=== PATIENT | female | born 1990 | race Caucasian/White ===

== ENCOUNTER 2024-04-22 09:03 | Outpatient (AMB) | payer OTHER, SELFPAY ==
--- NOTE | 2024-04-22 09:40 | A.SPINEOV_ITS ---
Intake Visit Reasons: compression of lumbar nerve root Intake Note: Ms. Marie is here today c/o low back pain. Colorist Photography Required: No Assessment & Plan Assessment & Plan (1) Lumbar disc herniation: Code(s): M51.26 - Other intervertebral disc displacement, lumbar region Category: Medical Plan Dear Dr Shay, Thank you for referring Patricia to our office today. She is a very nice 34-year-old female who reports that sometime around 3-4 weeks ago, she began experiencing some pain in her left buttock. Over the course of next few weeks it transitioned to a severe pain and cramping with spasms shooting down her leg into her foot. There has also been numbness as well as weakness of her left foot reported. She went to an urgent care as well as to your office. She was given a number of different medications to try to manage the pain including a trial of steroids, oxycodone, Tylenol, cyclobenzaprine, gabapentin. She takes meloxicam for a hip issue and that she is continued to take as well. If she is laying down on her right side, the pain is uncomfortable but she can tolerate it. But as soon as she stands up to walk it becomes almost unbearable. The pain may have gotten slightly better since she has been spending most of her days on her side but again any attempts at mobilizing gives her intense discomfort. She is here today with a recent MRI done at [facility] showing a large herniated disc on the left at L5-S1. To this point she has not done any physical therapy, but she tells me that there is no way she could participate because of the amount of pain. PMH: She has right hip dysplasia and is due for an upcoming hip replacement sometime in the fall. Other than that she is reasonably healthy. She has no history of heart attacks, strokes, bleeding disorders, liver disorder, kidneys disease, bleeding disorders, blood clots, cancer, pulmonary problems etc.. Social hx: She does not smoke, occasionally uses marijuana and alcohol Medications: Oxycodone, Colace, prednisone, meloxicam, lorazepam p.r.n., cyclobenzaprine, Tylenol Allergies: None Physical exam: She is in significant distress here in the office today just trying to do simple things like lying flat on the examining table. She has a positive straight leg raise at 20 degrees. She has a 3/5 weakness of her left tibialis. Rest of her motor exam is intact. Imaging review: Lumbar MRI done at [facility] just a week ago shows a herniated disc fragment on the left at L5-S1 which appears to be extraforaminal compressing the left L5 nerve root. The radiologist suggests that she has bilateral spondylolysis, but she has plain films done at [facility] and I do not see this on the x-ray. Impression: A 34-year-old female presents to the office today with an acute left L5 radiculopathy with foot weakness in the setting of a large herniated disc on the left at L5-S1. A typically this is a situation where we would attempt conservative treatment, but with the foot weakness I think there is a sense of urgency here. She has tried numerous pain medications without any significant relief in her pain levels are off the chart. I am going to speak with Dr. Webster and review her imaging with him, but typically this is a situation he would offer microdiskectomy. I have tentatively put her on for May 04 for a left far lateral microdiskectomy using the metrx tubes. I told her that if the pain happens to get better over the course of the time before the surgery that she could certainly call and cancel. We discussed the fact that the foot weakness and numbness maybe it a sign of nerve damage and there is no way to predict if it will get better after surgery. I quoted success rate for relief of the leg pain at 90%. Pt was given risk and benefits of surgery including but not limited to infection, hematoma , nerve injury,durotomy, weakness,bowel/bladder injury, persistent pain, recurrent herniated disc as well as the option to continue with conservative treatment and patient wishes to proceed with surgery. Pt is aware they should stop their meloxicam 7 days prior to surgery. All questions were answered to the best of our ability. If there is anything about this patients medical history that we have overlooked or concerns you have about us proceeding with surgery we would appreciate any input you can offer. Thank you for allowing us to care for your patient. The total time spent with this visit with this patient was 45 minutes reviewing history, physical exam, lumbar MRI imaging review, and implementation of treatment plan or further diagnostic testing George Webster MD,PhD [facility] Coding Level of Care Code New Pt Level 4 (89321) Diagnoses Lumbar disc herniation M51.26
== END 2024-04-22 10:55 | disposition home or self-care (01) ==
PROVIDERS: PCP Family Medicine; Referring Provider Family Medicine; Visit Provider Physician Assistant
DX: M51.26 Other intervertebral disc displacement, lumbar region (principal)
CPT/HCPCS: 99204

== ENCOUNTER → 2024-04-22 09:03 | Outpatient (BNVA) | payer OTHER, SELFPAY | PROVIDERS: PCP Family Medicine; Visit Provider Physician Assistant ==

== ENCOUNTER 2024-05-03 07:24 | Day surgery (SDC) | payer OTHER, SELFPAY ==
[2024-05-03] VITALS (9 sets, daily range): BP systolic 97–142; BP diastolic 67–115; PULSE 90–113; RESP 14–18; TEMP 36.5–37.1; O2SAT 93–100; BMI 36.3
--- NOTE | ~2024-05-03 | FL_ITS ---
EXAMINATION: XR FLUOROSCOPY WITH IMAGES CLINICAL INFORMATION: Far lateral microlumbar discectomy. COMPARISON: None available. TECHNIQUE: Fluoroscopy Supervised By: Dr. Wilman Webster. Fluoroscopy Time: 2.9 seconds. Cumulative Dose: 1.7638 mGy. DAP: 0.5598 Gy-cm2. Images: 2. FINDINGS: Intraoperative fluoroscopy and spot films were performed during a procedure in the OR. Probes and instruments are seen at the L5-S1 level on the left laterally. Please correlate with Dr. Wilman Webster' report for complete details. FL/FL guidance in OR IMPRESSION: Intraoperative fluoroscopy and spot films were obtained. Please see Dr. Wilman Webster' report for complete details.
[2024-05-03 07:43] LABS: UPreg QC Valid YES
[2024-05-03 07:44] LABS: Urine Pregnancy NEGATIVE (NEGATIVE)
--- NOTE | 2024-05-03 07:46 | MHC.SHP ---
Pre-Procedural Eval Section A - 24 Hr Update-Section A only Date of Service: 05/03/24 The patient is an INPATIENT: No Changes since office visit: No Cold of Flu in the past 2 weeks, No New Medical Problems, No Changes in Medication and No Patient answered all questions The patient has been examined within 24 hours of the surgical procedure. The History & Physical has been completed within 30 days and I have reviewed it.: Yes Section B - Complete if H&P > 30 days Chief Complaint: Other intervertebral disc displacement, lumbar reg Allergies: Allergies Allergy/AdvReac Type Severity Reaction Status Date / Time No Known Allergies Allergy Verified 04/25/24 16:04 Plan Diagnosis/Plan: Unchanged left L5-S1 far lateral microdiskectomy with Metrx tubes Time Spent With Patient Time: Total time managing care of this patient today _6___ minutes.
--- NOTE | 2024-05-03 07:49 | HO.ANESPROP2 ---
HPI - Anesthesia Eval Consult details Narrative: 34 yo F presenting fir L5-S1 microdiscectomy PMFSH Active Problems Active Problems: All Active Problems Lumbar disc herniation (Acute) Past Medical History Medical History (Updated 04/27/24 @ 10:36 by Tiara Zamora RN) Heartburn IUD (intrauterine device) in place Developmental dysplasia of hip Anxiety Family History Family history of problems with anesthesia: No Surgical History Surgical History (Updated 04/27/24 @ 10:05 by Tiara Zamora RN) Hx of reduction mammoplasty History of Problems with Anesthesia: No Social History Social History Are you a primary healthcare network consultant to a significant other at home: No Do you presently have visiting nurse or other home services: No Patient Tobacco Use Status: Never used Tobacco Substance Use Frequency: Occasionally Have you been hit, kicked, punched, or otherwise hurt by someone within the past year? If so, by whom?: No Are you DNR?: No Advance Directives: No (partner is primary contact) Advance Directives Information Provided: Yes Advance Directives on File: No Recently lost weight without trying: No Eating poorly because of decreased appetite: No Nutrition Risks: No Nutritional Risk Patient : No (has IUD) Poor oral hygiene: No Meds Allergies Allergy/AdvReac Type Severity Reaction Status Date / Time No Known Allergies Allergy Verified 04/25/24 16:04 Active Medications: Current Medications Cefazolin Sodium/Dextrose (Ancef) 2 gm in 50 mls @ 100 mls/hr IV PREOP ONE Stop: 05/03/24 07:57 Home Medications ?Medication ?Instructions ?Recorded ?Confirmed ?Last Taken ?Type acetaminophen 500 mg tablet 1,000 mg PO TID 04/27/24 04/27/24 05/03/24 History cyclobenzaprine 5 mg tablet 5 mg PO TID Muscle Spasm 04/27/24 04/27/24 05/03/24 History docusate sodium 100 mg capsule 100 mg PO DAILY 04/27/24 04/27/24 Unknown History (Colace) gabapentin 100 mg capsule 300 mg PO TID 04/27/24 04/27/24 05/03/24 History lorazepam 0.5 mg tablet 0.5 mg PO TID PRN Anxiety 04/27/24 04/27/24 05/03/24 History meloxicam 15 mg tablet 15 mg PO DAILY 04/27/24 04/27/24 Unknown History oxycodone 5 mg tablet 5 mg PO QID PRN Pain 04/27/24 04/27/24 05/03/24 History sennosides 8.6 mg tablet (senna) 8.6 mg PO BEDTIME 04/27/24 04/27/24 Unknown History Exam Exam Date and Time: May 03, 2024 0755 Height,Weight and Vital Signs: Height 5 ft 6 in Weight 102.058 kg Last Vital Signs Temp 98.8 F 05/03/24 07:38 Pulse 113 H 05/03/24 07:38 Resp 16 05/03/24 07:38 BP 142/115 H 05/03/24 07:38 Pulse Ox 100 05/03/24 07:38 O2 Del Method Room Air 05/03/24 07:38 Pertinent Lab Results Pertinent Lab Results: Laboratory Tests 05/03/24 07:31 Urine Test NEGATIVE Airway Mallampati Class: I TM Dist: >3cm Neck ROM: Full Loose/Missing/Broken Teeth: No (patient denies any loose or broken teeth) Heart: S1S2 Lungs: CTAB Assessment and Plan Assessment Anesthesia Assessment: Anesthesia Plan Discussed and Chart Reviewed Final Anesthetic Review Family History of Problems with Anesthesia: No History of Problems with Anesthesia: No NPO: Yes ASA Class: II Final Preanesthetic Review: No Changes in Pt Med Stat, Meds/Allgs Chart Reviewed, Consent Obtained/Reviewed and Anes Risks/Benef Reviewed Patient Risk: Low Procedure Risk: Intermediate Anesthetic Plan Anesthetic Plan: GA and Agree w/ Assess. and Plan Disposition: Standard PACU
[2024-05-03] MEDS: methocarbamoL 750 MG TABLET PO (07:50)
[2024-05-03] MEDS: Lactated Ringers 1,000 ML 50 ML IVCONT (08:03)
--- NOTE | 2024-05-03 09:00 | P.OP_ITS ---
Operative Note Operative Note Date of Service: 05/03/24 Narrative: Preop diagnosis: lumbar disc herniation L5-S1, extraforaminal ( far lateral) with lumbar radiculopathy Postop diagnosis: same Procedure: Left L5-S1 lumbar microdiskectomy, extraforaminal approach with microscope Description of procedure: This patient is suffering from a left L5 lumbar radiculopathy due to an L5-S1 extraforaminal lumbar disc herniation compressing the L5 nerve root. The patient was offered a lumbar microdiskectomy through an extraforaminal approach. The procedure and complications were explained. The patient was consented. The patient was brought to the operating room and endotracheally intubated. The patient was turned in the prone position on Steven frame. Prepping and draping was done followed by time-out. The lateral border of the L5-S1 facet joint was marked on the skin with x-ray. A left paramedian incision was made. The muscle fascia was opened. Sequential dilators were inserted followed by a 18 mm Metrx tube. the lateral border of the L5-S1 facet joint as well as the transverse process of L5 was exposed. The microscope was brought in. The lateral part of facet joint was resected with a high-speed drill. I went into the Kambin's triangle and immediately exposed a large disc fragment that was removed with a pituitary rongeur. Piece was approximately 2 cm x 1 cm. Accordingly, a nerve hook could be easily passed under the L5 nerve root as sign of adequate decompression. Physician assistant attorney general took over the procedure and performed hemostasis and closure of the incision in 2 layers. Steri-Strips were used to approximate the incision. An Oppsite with tegaderm was used to cover the incision. All sponge and needle counts were correct. The patient was extubated and transported in stable condition to recovery room. Surgeon: Wilman Webster MD Assist: sandy Nix Anesthesia: general Estimated blood loss: minimal Surgical time: 30 minutes Specimen: none Deposition: Discharge home
--- NOTE | 2024-05-03 09:05 | P.DS_ITS ---
DS: Providers Provider Date of Service: 05/03/24 Date of discharge: 05/03/24 Primary care physician: Ankita Benítez NP Admitting clinician: Wilman Webster DS: Diagnosis Discharge Diagnosis (1) Lumbar disc herniation: Status: Acute DS: Summary Time Attestation Discharge Coordination Time (in mins): 5 Quality: Safe Use of Opioids Does Pt have an Active Cancer Diagnosis on the Problem List?: No Quality: Stroke Does the patient have a stroke diagnosis?: No Physical Exam Vital Signs: Vital Signs: Last Vital Signs Temp 98.8 F 05/03/24 07:38 Pulse 113 H 05/03/24 07:38 Resp 16 05/03/24 07:38 BP 142/115 H 05/03/24 07:38 Pulse Ox 100 05/03/24 07:38 O2 Del Method Room Air 05/03/24 07:38 BMI result Body Mass Index 36.3 DS: Data Data Completed and Pending Labs on day of discharge: Laboratory Results - last 24 hr 05/03/24 07:31 Urine Test NEGATIVE Discharge Plan Discharge Patient Disposition: Home, Self-Care Referrals: Ankita Benítez NP [Primary Care Provider] - 1 Week Discharge Medications: Continued meloxicam 15 mg Tablet 15 mg PO DAILY lorazepam 0.5 mg Tablet 0.5 mg PO TID PRN (Reason: Anxiety) gabapentin 100 mg Capsule 300 mg PO TID Rx Instructions: took 600mg oxycodone 5 mg Tablet 5 mg PO QID PRN (Reason: Pain) Rx Instructions: took 10mg this am cyclobenzaprine 5 mg Tablet 5 mg PO TID sennosides [senna] 8.6 mg Tablet 8.6 mg PO BEDTIME acetaminophen 500 mg Tablet 1,000 mg PO TID docusate sodium [Colace] 100 mg Capsule 100 mg PO DAILY Discharge Orders: Discharge Order (Routine); Ordered 05/03/24 Ordered By: George Parkinson Diet: Advance to usual diet Activity on Discharge: As tolerated Activity Restrictions/Additional Instructions: After your spinal surgery we ask you to observe the following restrict ions/guidelines: Activity: It is normal to feel some discomfort as you increase your activity, but that will improve with time. We ask you avoid heavy lifting or acitivities that cause pain. As a general rule, 8lbs is a safe limit for lifting right after surgery. Walk as much as you feel comfortable but not to exhaustion. You will feel extra tired the first few days after surgery. Stay well hydrated. It is OK to walk up and down stairs You may return to driving when you are off narcotics (such as vicodin, oxycodone, dilaudid, etc), and you are back to normal functional capacity. If you have any concerns please check with office before driving. Return to work is specific to each patient and each surgery, so please speak with your doctor/PA at first follow up. Please bring paperwork such as FMLA at that time if you need it filled out. Medications: For optimum pain control, it is best to start with a combination of 500 mg of Tylenol every 4 hours with 600 mg of Motrin every 8 hours, and use narcotics as needed in between for breakthrough pain. We will give you a short supply of narcotics after surgery (usually one weeks worth). If you need more please call the office but do not use more than prescribed. You will need to give our office 48 hours notice if you need narcotics refilled and we do not fill narcotics on weekends or evenings. If you are on a narcotic, it is a good idea to take a stool softener such as colace or senna to avoid constipation If you take blood thinner such as aspirin, Plavix, Coumadin, Effient, Eliquis etc for conditions such as Afib, DVT, Pulmonary embolus, coronary disease, stents etc please speak with your surgeon about specific details as to when you can resume these medications. You can resume NSAIDs on post op day 1 (eg: Motrin, Naproxen, etc). Follow up: Please call the office, , after surgery to arrange a 3 week follow up for wound check. Wound Care: You may remove your dressing on the first day after surgery. ?You may ?leave open to air. Please do not remove the steri strips underneath. they will fall off on their own in one week. IT IS NORMAL FOR THE WOUND TO OOZE OR BE BLOODY FOR A FEW DAYS AFTER SURGERY. ?IF THIS HAPPENS JUST PLACE NEW DRESSING OVER IT TO AVOID STAINING CLOTHES. You may shower on post op day # 1 We ask that you do not let the water soak the wound. If it does get wet, just towel dry lightly. Please do not scrub your incision or place any type of chemical/ointment on the wound. No tub baths, pools or jacuzzis for one month. If you have any leaking or redness from your wound, or fevers, please call office Print Language: Setswana
== END 2024-05-03 11:42 | disposition home or self-care (01) ==
PROVIDERS: Anesthesiology; PCP Nurse Practitioner Gerontology; Visit Provider Neurological Surgery
PROC: (CPT 63056; principal; 2024-05-03 10:00)
DX: M51.26 Other intervertebral disc displacement, lumbar region (principal); F41.9 Anxiety disorder, unspecified; Q65.89 Other specified congenital deformities of hip; Z79.899 Other long term (current) drug therapy; Z79.52 Long term (current) use of systemic steroids; Z98.890 Other specified postprocedural states
CPT/HCPCS: 63056; 81025; J0131; J0690; J1100; J1170; J1885; J2250; J2405; J2704; J3010

== ENCOUNTER → 2024-05-03 07:24 | Outpatient (BNV) | payer OTHER, SELFPAY | PROVIDERS: PCP Nurse Practitioner Gerontology; Visit Provider Neurological Surgery | DX: M51.26 Other intervertebral disc displacement, lumbar region (principal) | CPT/HCPCS: 63056; 99499 ==

== ENCOUNTER 2024-05-27 11:05 | Outpatient (AMB) | payer OTHER, SELFPAY ==
--- NOTE | 2024-05-27 11:17 | HO.SPINEOV ---
Intake Visit Reasons: 1st post op Intake Note: Ms. Marie is here today for ther 1st post-op visit. Content Creation Manager Required: No Allergies No Known Allergies Allergy (Verified 04/25/24 16:04) Assessment & Plan Assessment & Plan (1) Lumbar disc herniation: Code(s): M51.26 - Other intervertebral disc displacement, lumbar region Category: Medical Plan Dear colleague, On 05/27/2024 saw for 1st postoperative visit Nikki Marie. The patient underwent a left extraforaminal L5-S1 diskectomy to decompress the left L5 nerve root. The patient reports a reduction in pain body still noticing swelling of the left foot and pain in the distal part of the leg.. Narcotics are no longer used. I explained that the location of the herniated disc produces direct compression of the ganglion, which is the area where pain is generated. It is well-known that subsidence of pain may take much longer than with a herniated disc in the classic medial position. A 2nd postoperative visit is scheduled for 6 weeks. The patient will call for return to work note at the appropriate time. Wilman Webster MD, PhD Spine Fellowship Trained Neurosurgeon Director, [facility] [facility] Coding Level of Care Code Global (71927) Diagnoses Lumbar disc herniation M51.26
== END 2024-05-27 11:31 | disposition home or self-care (01) ==
PROVIDERS: PCP Nurse Practitioner Gerontology; Visit Provider Neurological Surgery
DX: M51.26 Other intervertebral disc displacement, lumbar region (principal)
CPT/HCPCS: 99024

== ENCOUNTER → 2024-05-27 11:05 | Outpatient (BNVA) | payer OTHER, SELFPAY | PROVIDERS: PCP Nurse Practitioner Gerontology; Visit Provider Neurological Surgery ==

== ENCOUNTER 2024-07-14 10:55 | Outpatient (AMB) | payer OTHER, SELFPAY ==
--- NOTE | 2024-07-14 11:02 | A.SPINEOV_ITS ---
Intake Visit Reasons: 2nd post op Intake Note: Ms. Marie is here today for her 2nd post-op. Data Security Coordinator Required: No Allergies No Known Allergies Allergy (Verified 04/25/24 16:04) Assessment & Plan Assessment & Plan (1) Lumbar disc herniation: Code(s): M51.26 - Other intervertebral disc displacement, lumbar region Category: Medical Plan: Procedure: Left L5-S1 microdisckectomy Patricia comes in today for her 2nd postoperative visit. She reports she is overall satisfied with the surgery and does feel better than she did preoperatively. Unfortunately she continues to report of some left-sided lumbar radiculopathy. She states she still gets shooting pains into her left leg occasionally, and finds it difficult to ambulate. 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 She asked many questions regarding the postoperative healing course, and we discussed how her upcoming hip surgery may impact her continued healing progress in regards to her ambulation. In addition to this, we discussed the risks/benefits associated with the attending physical therapy at this point in the healing process. No new neurological deficits. Patient is able to ambulate well, rises from a seated position without difficulty. I will be sending Julissa a course of physical therapy before she follows up with her orthopedic provider to have her total hip done. She was informed she does not need to routinely follow up with us any longer and should continue to heal as time progresses. If she does have persistent left-sided radicular pain that does not subside, I encouraged her to make a follow-up appointment with us at which time we may order a repeat lumbar MRI depending on the severity of her symptoms. Hernesto Webster MD,PhD [facility] Orders: Orders PT Evaluation and Treatment Today M51.26 - Other intervertebral disc displacement, lumbar region Coding Level of Care Code Global (46684) Diagnoses Lumbar disc herniation M51.26
== END 2024-07-14 11:18 | disposition home or self-care (01) ==
PROVIDERS: PCP Nurse Practitioner Gerontology; Visit Provider Physician Assistant
DX: M51.26 Other intervertebral disc displacement, lumbar region (principal)
CPT/HCPCS: 99024

== ENCOUNTER → 2024-07-14 10:55 | Outpatient (BNVA) | payer OTHER, SELFPAY | PROVIDERS: PCP Nurse Practitioner Gerontology; Visit Provider Physician Assistant ==

== ENCOUNTER 2024-10-11 15:02 | Outpatient (AMB) | payer MEDICAID, SELFPAY ==
--- NOTE | 2024-10-11 15:03 | A.SPINEOV_ITS ---
Vital Signs 10/11/24 15:06 Height 5 ft 6 in Weight 226 lb BMI 36.5 Intake Visit Reasons: persistent left-sided radicular pain Intake Note: Ms. Marie is here today c/o Left sided buttock pain that radiates down the lower leg and foot. 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 She has also had a left total hip completed roughly 6 weeks ago. She is concerned that she continues to experience his sensation of numbness and weakness in her left lower extremity. She states that she can feel numbness over her left anterior tibialis in the top/medial aspect of her left foot. She is concerned as she also continues to have some pain associated in these areas, although she does not describe it as a shooting pain, more of a dull constant aching pain. She does feel that her ambulation has improved quite a bit since her hip surgery. On examination she has about 4/5 strength with left-sided dorsiflexion, plantar flexion, knee extension. The rest of her bilateral lower extremity strength is 5/5. Negative bilateral straight leg raise. Due to her reports of consistent pain and numbness/tingling in her left lower extremity, I would like to obtain a repeat lumbar MRI to ensure that she does not have any recurrence of herniation. I will see her again in clinic after her MRI is complete. Hernesto Webster MD,PhD [facility] Orders: Orders MR lumbar spine wo con Today M51.26 - Other intervertebral disc displacement, lumbar region Coding Level of Care Code Tele New Pt Level 3 (53322) Diagnoses Lumbar disc herniation M51.26
[2024-10-11 15:06] VITALS: BMI 36.5
--- OUTSIDE RECORDS SUMMARY | 2024-10-12 22:19 | XMS_ITS | Data Portability ---
Author Organization [facility], [employer] Address [address] [place] [address] [place] [id number] Assessment Encounter Date Assessment Date Assessment LastModified by Organization Details LastModified Time 03/04/2024 03/04/2024 Total Call Length: 13 minutes Chart Review and Documentation: 20 minutes Total: 33 minutes [email or web address] Not available 03/04/2024 11:24:12 04/07/2024 04/07/2024 During this encounter, 2 of the 3 elements of MDM addressed: (1)Number and Complexity of problems: 1 acute illness with systemic symptoms (2)Amount/Compl exity of data (need 1 out of 3 categories): (3)Moderate Risk of morbidity from additional diagnostic testing or treatment (one needed): Prescription Drug management. [email or web address] Not available 04/07/2024 13:08:19 04/12/2024 04/12/2024 Patient presents to the office with lower back pain, radiating down the left gluteus and the posterior left leg into the foot. Patient reports some numbness and tingling in the left lower extremity, denies bowel/bladder incontinence. They were seen in the office 04/07 and also seen in the emergency room later that day due to not being able to get comfortable. They report that the ED physician prescribed them prednisone which they do feel has had minimal good effects. They also report that the oxycodone has been more effective the last 48 hours in controlling pain, which they attribute to the steroids. They have been mainly laying in bed on their right side and have been unable to participate in usual daily activities. Physical exam confirms lower back pain with radiculopathy/s ciatica. DTRs 2+, patient able to perform active ROM limited by pain. We discussed continuing with prednisone and other medications, light movement, gentle massage, and heat therapies. They will also follow up for MRI imaging. Plan is for patient to follow-up in the office following MRI. Reviewed xrays during todays visit. No obvious xray abnormalities, but exam consistent with spinal nerve compression. Pt not capable of more supportive care at this time. Focal sensory and neurological deficits present on exam. [email or web address] Not available 04/13/2024 08:23:04 04/26/2024 04/26/2024 During this encounter, 2 of the 3 elements of MDM addressed: (1)Number and Complexity of problems: 1 or more chronic illness with exacerbation, progression, or side effects of treatment (2)Amount/Compl exity of data (need 1 out of 3 categories): (3)Moderate Risk of morbidity from additional diagnostic testing or treatment (one needed): Prescription Drug management. [email or web address] Not available 04/26/2024 15:11:43 08/25/2024 08/25/2024 During this encounter, 2 of the 3 elements of MDM addressed: (1)Number and Complexity of problems: 1 or more chronic illness with exacerbation, progression, or side effects of treatment (2)Amount/Compl exity of data (need 1 out of 3 categories): (3)Moderate Risk of morbidity from additional diagnostic testing or treatment (one needed): decision about minor or major surgery. Not available 08/25/2024 10:14:28 Plan of Treatment Reminders Order Date Submit Date Provider Last Modified By Organization Details Last Modified Time Details Appointments None recorded . Lab None recorded . Referral None recorded . Procedures None recorded . Surgeries None recorded . Imaging MRI, lumbar spine, w/o contrast 2023 024 [email or web address] [facility] ([facility]), [address] , [place], [address], 4 15:38:01 electroc ardiogra m 2023 024 [facility], [address], [address], 4 15:24:12 electroc ardiogra m 2023 024 [facility], [address], [address], 10:15:50 Medication Orders oxycodon e 5 mg tablet 2023 024 [facility], [address] [place] [address], [address], 09:29:19 gabapent in 100 mg capsule 2023 024 [facility], [address] [place] [address], [address], 09:29:01 cycloben zaprine 5 mg tablet 2023 [facility], [address] [place] [address], [address], 14:32:45 predniso ne 20 mg tablet 2023 [facility], [address] [place] [address], [address], 09:42:32 senna 8.6 mg tablet 2023 024 [facility], [address] [place] [address], [address], 09:30:16 gabapent in 300 mg capsule 2023 024 [facility], [address] [place] [address], [address], 09:29:03 cycloben zaprine 10 mg tablet 2023 024 [facility], [address] [place] [address], [address], 09:28:27 lorazepa m 0.5 mg tablet 2023 024 [facility], [address] [place] [address], [address], 11:18:55 lorazepa m 0.5 mg tablet 2023 [facility], [address] [place] [address], [address], 12:56:06 oxycodon e 5 mg tablet 2023 [facility], [address] [place] [address], [address], 4 09:29:55 gabapent in 300 mg capsule 2023 [facility], [address] [place] [address], [address], 09:30:57 oxycodon e 10 mg tablet 2023 [facility], [address] [place] [address], [address], 4 09:42:24 bisacody l 10 mg rectal supposit ory 2023 [facility], [address] [place] [address], [address], 09:27:20 lactulos e 10 gram/15 mL oral solution 2023 [facility], [address] [place] [address], [address], 14:08:11 senna 8.6 mg tablet 2023 [facility], [address] [place] [address], [address], 09:42:33 lorazepa m 0.5 mg tablet 2023 [facility], [address] [place] [address], [address], 15:41:45 Patient TargetsNo targets recorded. Patient Instructions Encounter Date Encounter Id Patient Instructions Last Modified By Organization Details Last Modified Time 04/12/2024 [id number] back pain: care instructions [email or web address] Not available 04/13/2024 08:23:25 Reason for Referral None Reported. Results Created Date Observation Date Name Description Value Unit Range Abnormal Flag Note LastModifiedBy Organization Detail LastModifiedTime 04/18/20 24 04/17/2024 MRI, lumba r spine , w/o contr ast No observ ation record ed. [facility] ([facility]) [address], [place], [id number], 04/18/2024 15:08:55 04/26/20 24 04/26/2024 elect rocar diogr am No observ ation record ed. [address] [place], [id number], 04/26/2024 15:24:12 04/26/20 24 04/26/2024 elect rocar diogr am No observ ation record ed. [address], [id number], 04/26/2024 15:48:55 08/25/20 24 08/25/2024 elect rocar diogr am No observ ation record ed. [address], [address], 08/25/2024 10:15:50 08/25/20 elect rocar diogr am No observ ation record ed. [address], [address], 08/25/2024 09:58:36 Result Notes None recorded. Problems Name Problem SNOMED Code Status Onset Date Resolution Date Notes Provider Name and Address Organization Details Recorded Time Development al dysplasia of right hip 8525187440 Active 2023 Ankita Benítez NP 1 [facility], [place], [address], [facility] - [facility] 10:22:37 Generalized anxiety disorder 68575869 Active 2023 Ankita Benítez NP 1 [facility], [place], [address], [facility] 4 10:22:57 Plantar fasciitis of left foot 5902867584003 9101 Active 2023 Ankita Benítez NP 1 [facility],[address], [place], [address], [facility] - [facility] 4 10:36:08 Problem Notes None recorded. Procedures Surgical History Date Name Laterality Status Provider Name and Address Organization Details Recorded Time 2 Breast reduction completed Ankita Benítez NP 1 [facility],[address], [place], [id number], [facility] 12/25/2023 10:23:39 Imaging Results Imaging Date Name Status LastModified by Organization Details LastModified Time 04/17/2024 MRI, lumbar spine, w/o contrast completed [facility] ([facility]) [address] , [place], [address], 04/18/2024 15:08:55 04/26/2024 electrocardiogram completed [address], [address], 04/26/2024 15:24:12 04/26/2024 electrocardiogram completed [address], [address], 04/26/2024 15:48:55 08/25/2024 electrocardiogram completed [address], [address], 08/25/2024 10:15:50 08/25/2024 electrocardiogram completed [address], [address], 08/25/2024 09:58:36 Procedure Notes None recorded. Medical Equipment None Reported. Allergies No known drug allergies Medications Name Sig Start Date Stop Date Status Note LastModified by Organization Details LastModified Time celecoxib 200 mg capsule 1 capsule by mouth after hip replaceme nt active Not Available Not Available No t Available cyclobenzap rine 10 mg tablet Take 1 tablet 3 times a day by oral route as needed for 7 days. 08/25 completed Not Available Not Available Not Available Mirena 21 mcg/24 hr (up to 8 years) 52 mg intrauterin e device Take by intrauter ine route. active Not Available Not Available No t Available senna 8.6 mg tablet Take 2 tablets every day by oral route for 14 days. 08/25 completed Not Available Not Available Not Available meloxicam 15 mg tablet TAKE 1 TABLET BY MOUTH ONCE DAILY active Not Available Not Available No t Available ondansetron HCl 4 mg tablet 1 tablet by mouth daily prn active Not Available Not Available No t Available prednisone 20 mg tablet Take 2 tablets daily for 7 days followed by 1 tablet daily for 7 days 08/25 completed Not Available Not Available Not Available oxycodone 15 mg tablet Take 1 tablet 3 times a day by oral route for 7 days. 04/26 completed Not Available Not Available Not Available meloxicam 7.5 mg tablet 12/25 completed Not Available Not Available Not Available lorazepam 0.5 mg tablet 2 tablets per day as needed 2023 active Not Available Not Available Not Avai lable bisacodyl 10 mg rectal suppository Insert 1 supposito ry every day by rectal route for 7 days. 08/25 completed Not Available Not Available Not Available gabapentin 300 mg capsule Take 1 capsule 3 times a day by oral route for 14 days. 08/25 completed Not Available Not Available Not Available Tylenol 325 mg tablet Take 2 tablets every 6 hours by oral route. active Not Available Not Available No t Available gabapentin 100 mg capsule 300mg TIDx1 week then 200mg TIDx1 week and 100mg TIDx1 week 08/25 completed Not Available Not Available Not Available methylpredn isolone 4 mg tablets in a dose pack TAKE 6 TABLETS ON DAY 1 DIRECTED ON PACKAGE AND DECREASE BY 1 TAB EACH DAY FOR A TOTAL OF 6 DAYS 04/26 completed Not Available Not Available Not Available oxycodone 5 mg tablet 1-2 tablet q4-6 hours after hip replaceme nt 2023 active Not Available Not Available Not Avai lable cyclobenzap rine 5 mg tablet TAKE 1 TABLET BY MOUTH THREE TIMES DAILY NEEDED active Not Available Not Available No t Available Constulose 10 gram/15 mL oral solution Take 15 mL twice a day by oral route as needed. active Not Available Not Available No t Available Colace active Not Available Not Availa ble Not Available Miralax active Not Available Not Avail able Not Available oxycodone 10 mg tablet Take 1 tablet every 4 hours by oral route as needed for 7 days. 08/25 completed Not Available Not Available Not Available Eliquis 2.5 mg tablet 1 tablet by mouth twice daily after hip replaceme nt active Not Available Not Available No t Available Vitals Date Recorded Body height Oxygen saturation Oxygen saturation in Arterial blood by Pulse oximetry Heart rate Systolic blood pressure Diastolic blood pressure Provider Name and Address Organization Details Last Updated DateTime 4 167.64 cm 99 % 99 % 97 /min 124 mm[Hg] 80 mm[Hg] Mary Ann james [facility] 4 12:43:57 Date Recorded Body height Oxygen saturation Oxygen saturation in Arterial blood by Pulse oximetry Heart rate Provider Name and Address Organization Details Last Updated DateTime 04/12/2024 167.64 cm 99 % 99 % 72 /min Radha Muniz [facility] 04/12/2024 10:37:20 Date Recorded Systolic blood pressure Diastolic blood pressure Provider Name and Address Organization Details Last Updated DateTime 04/12/2024 120 mm[Hg] 74 mm[Hg] Adriane Travis RN 1 [facility] [address], [address], [facility] 04/12/2024 10:49:10 Date Recorded Body height Oxygen saturation Oxygen saturation in Arterial blood by Pulse oximetry Heart rate Systolic blood pressure Diastolic blood pressure Provider Name and Address Organization Details Last Updated DateTime 4 167.64 cm 99 % 99 % 114 /min 124 mm[Hg] 86 mm[Hg] Mary Ann james [facility] 4 13:42:00 Date Recorded Body height Body mass index (BMI) Body weight Oxygen saturation Oxygen saturation in Arterial blood by Pulse oximetry Heart rate Systolic blood pressure Diastolic blood pressure Provider Name and Address Organization Details Last Updated DateTime 4 167.64 cm 36.2 kg/m2 050505. 69 g 99 % 99 % 84 /min 122 mm[Hg] 84 mm[Hg] Mary Ann james [facility] 09:31:35 Social History Question Answer Notes LastModified by Organizat ion Details LastModified Time Tobacco Smoking Status Former Smoker Ankita Benítez NP [address], [place], [address], [facility] 12/25/2023 10:25:26 What Is Your Level Of Alcohol Consumption? Occasional [email or web address] Information not available 12/25/2023 Are You Currently Employed? Yes [email or web address] Information not available 12/25/2023 Which Illicit Or Recreational Drugs Have You Used? 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 6-10yearssince lastcigarette Information not available 12/25/2023 How Many Children Do You Have? 0 [email or web address] Information not available 12/25/2023 What Is Your Relationship Status? Domestic Partner [email or web address] Information not available 12/25/2023 Do You Use Any Illicit Or Recreational Drugs? Yes [email or web address] Information not available 12/25/2023 Sex: Female Functional Status None recorded. Mental Status None recorded. Family History Relationship Description Onset Age of this Age Resolved Age Notes LastModified by Organization Details LastModified Time Mother History of total hip arthroplasty [email or web address] Not available 10:24:10 Mother History of total knee arthroplasty Not available 10:24:19 Mother Hypothyroidi sm Not available 2023 10:24:25 Father Heart valve replacement [email or web address] Not available 12/04 10:24:34 Medical History No medical history recorded. Gynecological HistoryNo gynecological history recorded. Obstetrics History GPAL:G 0 P 0 0 0 0 Past Encounters Encounter ID Performer Location Encounter Start Date Encounter Closed Date Diagnosis/Indication Diagnosis SNOMED-CT Code Diagnosis ICD10 Code [id number] Ankita Benítez NP Main Office [address] [place] [address] 12/25/2023 10:18:20 12/25/2023 10:45:40 Developmental dysplasia of right hip 4806775311 Q65.89 Generalize d anxiety disorder 40118944 F41.1 [id number] Ankita Benítez NP [address] [place] [address] 12/29/2023 09:43:58 12/29/2023 10:51:01 Developmental dysplasia of right hip 3167603538 Q65.89 [id number] Ankita Benítez NP [address] [place] [address] 03/04/2024 11:07:33 03/04/2024 11:27:57 Developmental dysplasia of right hip 2268609713 Q65.89 [id number] Ankita Benítez NP [address] [place] [address] 04/07/2024 12:32:10 04/07/2024 13:54:08 Low back pain 741427386 M54.50 [id number] [address] Office [address] [place] [address] 04/12/2024 10:28:29 04/12/2024 11:21:48 Low back pain 921351832 M54.50 Lumbago with sciatica 20 0542983 M54.42 [id number] Ankita Benítez NP [address] [place] [address] 04/26/2024 13:35:09 04/26/2024 14:39:02 Therapeutic opioid induced constipation 3444199291 63189 K59.00 Lumbago with sciatica 20 5931010 M54.40 [id number] Ankita Benítez NP [address] [place] [address] 08/25/2024 09:21:49 08/25/2024 10:13:33 Developmental dysplasia of right hip 8363557596 Q65.89 Pre-surger y evaluation 414933258 Z01.818 Health Concerns Section Related Observation LastModified by Organization Detai ls LastModified Time None Recorded Concern Status LastModified by Organization Details LastModified Time None Recorded Advance Directives Directive None Recorded Payers Encounter Date Sequence Insurance Name Policy Number Policy Parish Covered Member ID Parish Member ID Guarantor Name 03/04/2024 1 [facility] [id number] Patricia Marie [id number] Patricia Marie 04/07/2024 1 [facility] [id number] Patricia Marie [id number] Patricia Marie 04/12/2024 1 [facility] [id number] Patricia Marie [id number] Patricia Marie 04/26/2024 1 [facility] [id number] Patricia Marie [id number] Patricia Marie 08/25/2024 1 [facility] [id number] Patricia Marie [id number] Patricia Marie Notes Date Note Type Note Provider Name and Address Organization Details Recorded Time 03/04/2024 text/html Video visit to discuss their hip surgery. They are scheduled for a hip replacement in July with Dr. Kali Washington at [facility] in [place], [place]. The provider number which is: [id number] (facility NPI number). Surgery is 07/14/24.This surgery is ideally performed by Dr. Washington because of his experience with hip dysplasia and the findings on the MRI. Patricia saw Dr. Washington this morning and I will be getting a copy of his note when signed.May need PFA for intermittent leave leading up to surgery and if so Patricia will message me with details and paperwork. Ankita Benítez NP 1 [facility], [place], [address], [facility] 03/04/2024 11:27:22 04/07/2024 text/html Has been having back pain for the last week, making it difficult to sleep. Seen at urgent care this morning but they were unable to provide any pain relief meds. They have been using flexeril, tylenol, ice and heat. Having pain into the left buttocks and tingling and numbness down the left leg. No incontinence or weakness. Ankita Benítez NP 1 [facility], [place], [address], [place] [facility] 04/07/2024 13:08:29 04/12/2024 text/html Patient presents today for continuing issues with lower back pain. They were seen in the office 04/07 and in the emergency room later that day. Michel Shay, DO 1 [facility],[address], [place], [address], [place] [facility] 04/13/2024 08:23:27 04/26/2024 text/html Here to discuss constipation and pain management before her back surgery next week. Her oxycodone is not holding her for the 6 hours.Despite numerous bowel meds she is still constipation. Ankita Benítez NP 1 [facility],[address], [place], [address], [place] [facility] 04/26/2024 15:14:02 08/25/2024 text/html Here for a pre-o p exam for her right hip replacement on 09/01/24. She has been in her usual state of health recently. No chest pains, shortness of breath or recent illnesses. She had a surgery earlier this year and struggled in the post-op period with pain and then tapering off pain medications but had no complications with anesthesia. She is not on any medications that need to be held prior to surgery. Ankita Benítez NP 1 [facility],[address], [place], [address], [place] [facility] 08/25/2024 10:15:18 OBGyn Episode No OBEpisode recorded.
--- OUTSIDE RECORDS SUMMARY | 2024-10-12 22:19 | XMS_ITS | Continuity of Care Document ---
Author Organization [facility], Main Office Address [address] [facility] [address] [place] [address] Assessment Encounter Date Assessment Date Assessment LastModified by Organization Details LastModified Time 08/25/2024 08/25/2024 During this encounter, 2 of the 3 elements of MDM addressed: (1)Number and Complexity of problems: 1 or more chronic illness with exacerbation, progression, or side effects of treatment (2)Amount/Com plexity of data (need 1 out of 3 categories): (3)Moderate Risk of morbidity from additional diagnostic testing or treatment (one needed): decision about minor or major surgery. Not available 08/25/2024 10:14:28 Plan of Treatment Reminders Order Date Submit Date Provider Last Modified By Organization Details Last Modified Time Details Appointments None recorded. Lab None recorded. Referral None recorded. Procedures None recorded. Surgeries None recorded. Imaging electrocard iogram 2023 [facility], [facility], [address] [place] [address], [address], 10:15:50 Medication Orders lorazepam 0.5 mg tablet 2023 [facility], [address] [place] [address], [address], 15:41:45 Patient TargetsNo targets recorded. Patient InstructionsNo instructions recorded. Reason for Referral None Reported. Results Created Date Observation Date Name Description Value Unit Range Abnormal Flag Note LastModifiedBy Organization Detail LastModifiedTime 08/25/2008/25/2024 elect jhony hamm am No observ ation record ed. [address], [address], 08/25/2024 10:15:50 08/25/20 24 elect jhony hamm am No observ ation record ed. [facility] [address] [facility] [address], [place], [address], 08/25/2024 09:58:36 Result Notes None recorded. Problems Name Problem SNOMED Code Status Onset Date Resolution Date Notes Provider Name and Address Organization Details Recorded Time Development al dysplasia of right hip 4258315452 Active 2023 Ankita Benítez NP [address], [place], [address], [place] [facility] 4 10:22:37 Generalized anxiety disorder 56478072 Active 2023 Ankita Benítez NP [address], [place], [address], [place] [facility] 4 10:22:57 Plantar fasciitis of left foot 4782747227993 9101 Active 2023 Ankita Benítez NP [address], [place], [address], [place] [facility] 4 10:36:08 Problem Notes None recorded. Procedures Surgical History Date Name Laterality Status Provider Name and Address Organization Details Recorded Time 2 Breast reduction completed Ankita Benítez NP [address] [facility],[address], [place], [address], [place] [facility] 12/25/2023 10:23:39 Imaging Results Imaging Date Name Status LastModified by Organization Details LastModified Time 08/25/2024 electrocardiogram completed [facility] [address] [facility] [address], [place], [address], 08/25/2024 10:15:50 Procedure Notes None recorded. Medical Equipment None [...] t Available Vitals Date Recorded Body height Body mass index (BMI) Body weight Oxygen saturation Oxygen saturation in Arterial blood by Pulse oximetry Heart rate Systolic blood pressure Diastolic blood pressure Provider Name and Address Organization Details Last Updated DateTime 4 167.64 cm 36.2 kg/m2 332374. 69 g 99 % 99 % 84 /min 122 mm[Hg] 84 mm[Hg] Mary Ann Randolph jacob [place] [facility] 4 09:31:35 Social History Question Answer Notes LastModified by Organizat ion Details LastModified Time Tobacco Smoking Status Former Smoker Ankita Benítez NP [address] [facility], [place], [address], [place] [facility] 12/25/2023 10:25:26 What Is Your Level Of Alcohol Consumption? Occasional [email or web address] Information not available 12/25/2023 Are You Currently Employed? Yes [email or web address] Information not available 12/25/2023 Which Illicit Or Recreational Drugs Have You Used? 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 6-10yearssince lastcigarette [email or web address] Information not available 12/25/2023 How Many Children Do You Have? 0 [email or web address] Information not available 12/25/2023 What Is Your Relationship Status? Domestic Partner Information not available 12/25/2023 Do You Use Any Illicit Or Recreational Drugs? Yes [email or web address] Information not available 12/25/2023 Sex: Female Functional Status None recorded. Mental Status None recorded. Family History Relationship Description Onset Age of this Age Resolved Age Notes LastModified by Organization Details LastModified Time Mother History of total hip arthroplasty Not available 10:24:10 Mother History of total knee arthroplasty [email or web address] Not available 10:24:19 Mother Hypothyroidi sm [email or web address] Not available 2023 10:24:25 Father Heart valve replacement [email or web address] Not available 12/04 10:24:34 Medical History No medical history recorded. Gynecological HistoryNo gynecological history recorded. Obstetrics History GPAL:G 0 P 0 0 0 0 Past Encounters Encounter ID Performer Location Encounter Start Date Encounter Closed Date Diagnosis/Indication Diagnosis SNOMED-CT Code Diagnosis ICD10 Code [id number] Ankita Benítez NP Main Office [address] [place] [address] 08/25/2024 09:21:49 08/25/2024 10:13:33 Developmental dysplasia of right hip 4067401922 Q65.89 Pre-surger y evaluation 937357179 Z01.818 Health Concerns Section Related Observation LastModified by Organization Detai ls LastModified Time None Recorded Concern Status LastModified by Organization Details LastModified Time None Recorded Payers Encounter Date Sequence Insurance Name Policy Number Policy Parish Covered Member ID Parish Member ID Guarantor Name 08/25/2024 1 [facility] [place] [id number] Patricia Marie [id number] Patricia Marie Notes Date Note Type Note Provider Name and Address Organization Details Recorded Time 08/25/2024 text/html Here for a pre-o p [...] prior to surgery. Ankita Benítez NP [address] [facility],[address], [place], [address], [facility] Primary 08/25/2024 10:15:18 OBGyn Episode No OBEpisode recorded.
== END 2024-10-11 15:18 | disposition home or self-care (01) ==
PROVIDERS: PCP Nurse Practitioner Gerontology; Visit Provider Physician Assistant
DX: M51.26 Other intervertebral disc displacement, lumbar region (principal)
CPT/HCPCS: 99213

== ENCOUNTER → 2024-10-11 15:02 | Outpatient (BNVA) | payer MEDICAID, SELFPAY | PROVIDERS: PCP Nurse Practitioner Gerontology; Visit Provider Physician Assistant | DX: M51.26 Other intervertebral disc displacement, lumbar region (principal) | CPT/HCPCS: 99212 ==

== ENCOUNTER 2024-11-07 13:08 | Outpatient (AMB) | payer MEDICAID, SELFPAY ==
--- NOTE | 2024-11-07 13:13 | A.SPINEOV_ITS ---
Intake Visit Reasons: MRI f/up Intake Note: Ms. Marie is here today to F/u on the results to her MRI. Advertising Account Representative Required: No Allergies No Known Allergies Allergy (Verified 11/07/24 13:15) Assessment & Plan Assessment & Plan (1) S/P lumbar microdiscectomy: Code(s): Z98.890 - Other specified postprocedural states Category: Surgical Plan Ms. Marie comes in today for follow-up after having her lumbar MRI completed. To recap during her last office visit she reported continued numbness over her left anterior tibialis in the top/medial aspect of her left foot. She was also experiencing dull pain in these areas. She reports that these symptoms have persisted, despite continuing with physical therapy and [id number] medications. She rates several concerns during this visit regarding postoperative expectations, as she believes she would be completely pain-free with no residual symptoms after surgery. We discussed how unfortunately numbness and weakness can be a result of permanent nerve injury. I reviewed the patient's operative notes which appear to recount a successful microdiscectomy: I went into the Kambin's triangle and immediately exposed a large disc fragment that was removed with a pituitary rongeur. Piece was approximately 2 cm x 1 cm. Accordingly, a nerve hook could be easily passed under the L5 nerve root as sign of adequate decompression. We reviewed her lumbar MRI today in clinic. I am able to track the left L5 nerve out from the foramen. There does appear to be some residual compression around this area but it may just be secondary to scar tissue and healing of the surrounding structures. I would like to send the patient for a left L5 transforaminal epidural steroid injection. She requested this be done at [facility] in [place]. If she has a very good response to the injection we may consider the possibility of repeat microdiskectomy. If she does not have a good response to the injection then this is most likely related to some kind of permanent nerve injury. She will follow up with us in clinic after the injection. Hernesto Webster MD,PhD [facility] Orders: Referrals Pain Management Referral Z98.890 - Other specified postprocedural states Coding Level of Care Code Est Pt Level 2 (18092) Diagnoses S/P lumbar microdiscectomy Z98.890
--- OUTSIDE RECORDS SUMMARY | 2024-11-07 15:14 | XMS_ITS | Continuity of Care Document ---
Author Organization [facility], Main Office Address [address] [facility] [address] [place] [address] Assessment Encounter Date Assessment Date Assessment LastModified [...] needed): decision about minor or major surgery. [email or web address] Not available 08/25/2024 10:14:28 Plan of Treatment Reminders Order Date Submit Date Provider Last Modified By Organization Details Last Modified Time Details Appointments None recorded. Lab None recorded. Referral None recorded. Procedures None recorded. Surgeries None recorded. Imaging electrocard iogram 2023 [facility], [facility], [address] [place] [address], [address], 10:15:50 Medication Orders lorazepam 0.5 mg tablet 2023 [facility], [address] [place] [address], [address], 15:41:45 Patient TargetsNo targets recorded. Patient InstructionsNo instructions recorded. Reason for Referral None Reported. Results Created Date Observation Date Name Description Value Unit Range Abnormal Flag Note LastModifiedBy Organization Detail LastModifiedTime 08/25/2008/25/2024 elect jhony hamm am No observ ation record ed. [address], [address], 08/25/2024 10:15:50 08/25/20 24 elect jhony hamm am No observ ation record ed. [facility] [address] [facility] [address], [place], [address], 08/25/2024 09:58:36 Result Notes None recorded. Problems Name Problem SNOMED Code Status Onset Date Resolution Date Notes Provider Name and Address Organization Details Recorded Time Development al dysplasia of right hip 0902605870 Active 2023 Ankita Benítez NP [address], [place], [address], [place] [facility] 4 10:22:37 Generalized anxiety disorder 28897364 Active 2023 Ankita Benítez NP [address], [place], [address], [place] [facility] 4 10:22:57 Plantar fasciitis of left foot 7648820194322 9101 Active 2023 Ankita Benítez NP [address], [place], [address], [place] [facility] 4 10:36:08 Problem Notes None recorded. Procedures Surgical History Date Name Laterality Status Provider Name and Address Organization Details Recorded Time 2 Breast reduction completed Ankita Benítez NP [address] [facility],[address], [place], [address], [place] [facility] 12/25/2023 10:23:39 Imaging Results Imaging Date Name Status LastModified by Organization Details LastModified Time 08/25/2024 electrocardiogram completed [facility] [address] [facility] [address], [place], [address], 08/25/2024 10:15:50 Procedure Notes None recorded. Medical [...] Updated DateTime 4 167.64 cm 36.2 kg/m2 183252. 69 g 99 % 99 % 84 /min 122 mm[Hg] 84 mm[Hg] Mary Ann Randolph jacob [place] [facility] 4 09:31:35 Social History Question Answer Notes LastModified by Organizat ion Details LastModified Time Tobacco Smoking Status Former Smoker Ankita Benítez NP [address] [facility], [place], [address], [place] [facility] 12/25/2023 10:25:26 What Is Your Level Of Alcohol Consumption? Occasional [email or web address] Information not available 12/25/2023 Are You Currently Employed? Yes [email or web address] Information not available 12/25/2023 Which Illicit Or Recreational Drugs Have You Used? 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 6-10yearssince lastcigarette [email or web address] Information not available 12/25/2023 How Many Children Do You Have? 0 Information not available 12/25/2023 What Is Your Relationship Status? Domestic Partner [email or web address] Information not available 12/25/2023 Do You Use Any Illicit Or Recreational Drugs? Yes [email or web address] Information not available 12/25/2023 Sex: Female Functional Status None recorded. Mental Status None recorded. Family History Relationship Description Onset Age of this Age Resolved Age Notes LastModified by Organization Details LastModified Time Mother History of total hip arthroplasty [email or web address] Not available 10:24:10 Mother History of total knee arthroplasty Not available 10:24:19 Mother Hypothyroidi sm Not available 2023 10:24:25 Father Heart valve replacement [email or web address] Not available 12/04 10:24:34 Medical History No medical history recorded. Gynecological HistoryNo gynecological history recorded. Obstetrics History GPAL:G 0 P 0 0 0 0 Past Encounters Encounter ID Performer Location Encounter Start Date Encounter Closed Date Diagnosis/Indication Diagnosis SNOMED-CT Code Diagnosis ICD10 Code Diagnosis Note [id number] Ankiat Benítez NP Main Office [address] [place] [address] 08/25/2024 09:21:49 08/25/2024 10:13:33 Developmental dysplasia of right hip 2467212823 Q65.89 Surgery planned for 09/01. Pre-surger y evaluation 235684396 Z01.818 RCRI risk of 3.9% of cardiac event or within 30 days. EKG WNL at office today.fax: Health Concerns Section Related Observation LastModified by Organization Detai ls LastModified Time None Recorded Concern Status LastModified by Organization Details LastModified Time None Recorded Payers Encounter Date Sequence Insurance Name Policy Number Policy Parish Covered Member ID Parish Member ID Guarantor Name 08/25/2024 1 [facility] [place] [id number] Patricia Marie [id number] Patricia Marie Notes Date Note Type Note [...] prior to surgery. Ankita Benítez NP [address], [place], [address], [place] [facility] 08/25/2024 10:15:18 OBGyn Episode No OBEpisode recorded.
== END 2024-11-07 13:50 | disposition home or self-care (01) ==
PROVIDERS: PCP Nurse Practitioner Gerontology; Visit Provider Physician Assistant
DX: Z98.890 Other specified postprocedural states (principal)
CPT/HCPCS: 99212

== ENCOUNTER → 2024-11-07 13:08 | Outpatient (BNVA) | payer MEDICAID, SELFPAY | PROVIDERS: PCP Nurse Practitioner Gerontology; Visit Provider Physician Assistant | DX: Z98.890 Other specified postprocedural states (principal) | CPT/HCPCS: 99212 ==

== ENCOUNTER 2024-12-02 13:03 | Outpatient (AMB) | payer MEDICAID, SELFPAY ==
--- NOTE | 2024-12-02 13:04 | A.SPINEOV_ITS ---
Intake Visit Reasons: LBP worsening sx 05/25 Intake Note: Ms. Marie is here today c/o low back pain worsening. 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 To recap briefly, last year she had a far lateral L5-S1 intraforaminal disc herniation with microdiskectomy done revealing large fragment and good decompression of the nerve root at the time of surgery. Her course was fairly typical for far lateral disc herniation and that the leg pain took some time to improve but by about 6 weeks she was much much better and the leg pain was basically gone. She has been left however with a very slow healing and still present numbness, burning in the anterior tibial region down to the top of the foot and the big toe as well as weakness of her left foot. I examined her again today, she appears very comfortable with normal gait, her foot weakness is however demonstrating about a 1/5 of the left EHL, 4+ out of 5 of the left tibialis and 2 to 3/5 of eversion. 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 I went back and looked at her MRI at [facility] that she had done postoperatively with Dr. Webster and although the radiology report is still suggesting that there severe neuroforaminal stenosis, he and I both reviewed together and we can clearly see the nerve in the foramen and there is still some disc material that is projecting posteriorly and inferiorly to the nerve but is not contacting it. In light of the fact that she is not having the radicular pain this is all consistent with evidence that the nerve root as well decompressed. Unfortunately what she is left with however is the nerve injury from the original disc herniation. It still could take up to a year for this to improve to its maximum so I reassured her that it may just take more time but that there could be lasting weakness in her foot for the rest of her life unfortunately. She understands this and seems to be realistic about it. 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 I told her that these can come and go and change in size and at this point is nothing to do for it. I do not think there is any value in her having the cortisone injection either as that would typically be done to help pain which she does not have. She will follow up with us down the road if something changes. We did discuss good lifting techniques and activities to avoid. Total amount of time spent in this visit was 20 minutes in discussion of symptoms, lumbar imaging results and subsequent plan of care George Webster MD,PhD [facility] George Webster MD, PhD [facility] Coding Level of Care Code Est Pt Level 3 ([address]209) Diagnoses S/P lumbar microdiscectomy Z98.890
--- OUTSIDE RECORDS SUMMARY | 2024-12-02 13:17 | XMS_ITS | Data Portability ---
Author Organization [facility], [employer] Address [address] [place] [address] [place] [address] Assessment Encounter Date Assessment Date Assessment LastModified by Organization Details LastModified Time 03/04/2024 03/04/2024 Total Call Length: 13 minutes Chart Review and Documentation: 20 minutes Total: 33 minutes [email or web address] Not available 03/04/2024 11:24:12 04/07/2024 04/07/2024 During this encounter, 2 of the 3 elements of MDM addressed: (1)Number and Complexity of problems: 1 acute illness with systemic symptoms (2)Amount/Compl exity of data (need 1 out of 3 categories): (3)Moderate Risk of morbidity from additional diagnostic testing or treatment (one needed): Prescription Drug management. [email or web address] Not available 04/07/2024 13:08:19 04/12/2024 04/12/2024 Patient [...] sensory and neurological deficits present on exam. [email or web address] Not available 04/13/2024 08:23:04 04/26/2024 04/26/2024 During this encounter, 2 of the 3 elements of MDM addressed: (1)Number and Complexity of problems: 1 or more chronic illness with exacerbation, progression, or side effects of treatment (2)Amount/Compl exity of data (need 1 out of 3 categories): (3)Moderate Risk of morbidity from additional diagnostic testing or treatment (one needed): Prescription Drug management. [email or web address] Not available 04/26/2024 15:11:43 08/25/2024 08/25/2024 During this encounter, 2 of the 3 elements of MDM addressed: (1)Number and Complexity of problems: 1 or more chronic illness with exacerbation, progression, or side effects of treatment (2)Amount/Compl exity of data (need 1 out of 3 categories): (3)Moderate Risk of morbidity from additional diagnostic testing or treatment (one needed): decision about minor or major surgery. [email or web address] Not available 08/25/2024 10:14:28 Plan of Treatment Reminders Order Date Submit Date Provider Last Modified By Organization Details Last Modified Time Details Appointments FOLLOW UP 2024 09:20A M Ankita Benítez NP Not available Not available Not available Lab None recorde d. Referral None recorde d. Procedures None recorde d. Surgeries None recorde d. Imaging MRI, lumbar spine, w/o contras t 2023 024 [email or web address] [facility] ([facility]), [address], [place], [address], 04/15/2024 15:38:01 electro cardiog carlos 2023 024 [facility], [address], [place], [address], 04/26/2024 15:24:12 electro cardiog carlos 2023 024 [facility], [address] [facility], [facility], [place], [address], 08/25/2024 10:15:50 Medication Orders oxycodo ne 5 mg tablet [address] [facility], [address] [place] [address], [address], 08/25/2024 09:29:19 gabapen tin 100 mg capsule [address] [facility], [address] [place] [address], [address], 08/25/2024 09:29:01 cyclobe nzaprin e 5 mg tablet 2023 024 [facility], [address] [place] [address], [address], 06/14/2024 14:32:45 prednis one 20 mg tablet 2023 024 [facility], [address] [place] [address], [address], 08/25/2024 09:42:32 senna 8.6 mg tablet [address] [facility], [address] [place] [address], [address], 08/25/2024 09:30:16 gabapen tin 300 mg capsule [address] [facility], [address] [place] [address], [address], 08/25/2024 09:29:03 cyclobe nzaprin e 10 mg tablet [address] [facility], [address] [place] [address], [address], 08/25/2024 09:28:27 lorazep am 0.5 mg tablet 2023 024 [facility], [address] [place] [address], [address], 04/12/2024 11:18:55 lorazep am 0.5 mg tablet [address], [address], 04/12/2024 12:56:06 oxycodo ne [address] [facility], [address] [place] [address], [address], 08/25/2024 09:29:55 gabapen tin 300 mg capsule 2023 [facility], [address] [place] [address], [address], 08/25/2024 09:30:57 oxycodo ne 10 mg tablet 2023 [facility], [address] [place] [address], [address], 08/25/2024 09:42:24 bisacod yl 10 mg rectal supposi tory 2023 [facility], [address] [place] [address], [address], 08/25/2024 09:27:20 lactulo se 10 gram/15 mL oral solutio n 2023 [facility], [address] [place] [address], [address], 04/26/2024 14:08:11 senna 8.6 mg tablet 2023 [facility], [address] [place] [address], [address], 08/25/2024 09:42:33 lorazep am 0.5 mg tablet 2023 [facility], [address] [place] [address], [address], 08/30/2024 15:41:45 Patient TargetsNo targets recorded. Patient Instructions Encounter Date Encounter Id Patient Instructions Last Modified By Organization Details Last Modified Time 04/12/2024 [id number] back pain: care instructions [email or web address] Not available 04/13/2024 08:23:25 Reason for Referral None Reported. Results Created Date Observation Date Name Description Value Unit Range Abnormal Flag Note LastModifiedBy Organization Detail LastModifiedTime 04/18/2004/17/2024 MRI, lumba r spine , w/o contr ast No observ ation record ed. [facility] ([facility]) [address], [place], [address], 04/18/2024 15:08:55 04/26/20 24 04/26/2024 elect rocar diogr am No observ ation record ed. [facility], [place], [address], 04/26/2024 15:24:12 04/26/20 24 04/26/2024 elect rocar diogr am No observ ation record ed. [facility], [place], [address], 04/26/2024 15:48:55 08/25/2008/25/2024 elect rocar diogr am No observ ation record ed. [facility], [place], [address], 08/25/2024 10:15:50 08/25/20 elect rocar diogr am No observ ation record ed. [facility] [address] [place] [address], [address], 08/25/2024 09:58:36 12/01/19 25 11/04/2024 MRI, lumba r spine , w/wo contr ast No observ ation record ed. [email or web address] Not Available 2024 09:25:17 Result Notes None recorded. Problems Name Problem SNOMED Code Status Onset Date Resolution Date Notes Provider Name and Address Organization Details Recorded Time Development al dysplasia of right hip 9665999645 Active 2023 Ankita Benítez NP [address], [place], [place], [address], [place] [facility] 4 10:22:37 Generalized anxiety disorder 33398554 Active 2023 Ankita Benítez NP [address], [place], [place], [address], [place] [facility] 4 10:22:57 Plantar fasciitis of left foot 8776939985019 9101 Active 2023 Ankita Benítez NP [address], [place], [place], [address], [place] [facility] 4 10:36:08 Problem Notes None recorded. Procedures Surgical History Date Name Laterality Status Provider Name and Address Organization Details Recorded Time 2 Breast reduction completed Ankita Benítez NP [address] [facility],[address], [place], [address], [place] [facility] 12/25/2023 10:23:39 Imaging Results Imaging Date Name Status LastModified by Organization Details LastModified Time 04/17/2024 MRI, lumbar spine, w/o contrast completed [facility] ([facility]) [address], [place], [address], 04/18/2024 15:08:55 04/26/2024 [address], [address], 04/26/2024 15:24:12 04/26/2024 electrocardiogram completed [address] [place], [address], 04/26/2024 15:48:55 08/25/2024 electrocardiogram completed [address] [place], [address], 08/25/2024 10:15:50 08/25/2024 electrocardiogram completed [address] [place], [address], 08/25/2024 09:58:36 11/04/2024 MRI, lumbar spine, w/wo contrast completed [email or web address] Information not available 12/01/2024 09:25:17 Procedure Notes None recorded. Medical Equipment None Reported. Allergies No known drug allergies Medications Name Sig Start Date Stop Date Status Note LastModified by Organization Details LastModified Time celecoxib 200 mg capsule 1 capsule by mouth after hip replacem ent active Not Available Not Available No t Available cyclobenz aprine 10 mg tablet Take 1 tablet 3 times a day by oral route as needed for 7 days. 08/25 completed Not Available Not Available Not Available Mirena 21 mcg/24 hr (up to 8 years) 52 mg intrauter ine device Take by intraute rine route. active Not Available Not Available No t Available senna 8.6 mg tablet Take 2 tablets every day by oral route for 14 days. 08/25 completed Not Available Not Available Not Available meloxicam 15 mg tablet TAKE 1 TABLET BY MOUTH ONCE DAILY active Not Available Not Available No t Available ondansetr on HCl 4 mg tablet 1 tablet by mouth daily prn active Not Available Not Available No t Available prednison e 20 mg tablet Take 2 tablets daily [...] tablet 2 tablets per day as needed active 08/30/20 24 1 Lorazepa m 0.5 Mg [email or web address] 10 Not Available Not Available Not Available bisacodyl 10 mg rectal supposito ry Insert 1 supposit ory every day by rectal route for 7 days. 08/25 completed Not Available Not Available Not Available gabapenti n 300 mg capsule Take 1 capsule 3 times a day by oral route for 14 days. 08/25 completed Not Available Not Available Not Available Tylenol 325 mg tablet Take 2 tablets every 6 hours by oral route. active Not Available Not Available No t Available gabapenti n 100 mg capsule 300mg TIDx1 week then 200mg TIDx1 week and 100mg TIDx1 week 08/25 completed Not Available Not Available Not Available methylpre dnisolone 4 mg tablets in a dose pack TAKE 6 TABLETS ON DAY 1 DIRECTED ON PACKAGE AND DECREASE BY 1 TAB EACH DAY FOR A TOTAL OF 6 DAYS 04/26 completed Not Available Not Available Not Available oxycodone 5 mg tablet 1-2 tablet q4-6 hours after hip replacem ent 2023 active Not Available Not Available Not Avai lable cyclobenz aprine 5 mg tablet TAKE 1 TABLET BY MOUTH THREE TIMES DAILY NEEDED active Not Available Not Available No t Available Constulos e 10 gram/15 mL oral solution Take 15 [...] tablet by mouth twice daily after hip replacem ent active Not Available Not Available No t Available Vitals Date Recorded Body height Oxygen saturation Oxygen saturation in Arterial blood by Pulse oximetry Heart rate Systolic blood pressure Diastolic blood pressure Provider Name and Address Organization Details Last Updated DateTime 4 167.64 cm 99 % 99 % 97 /min 124 mm[Hg] 80 mm[Hg] Mary Ann james [facility] 4 12:43:57 Date Recorded Body height Oxygen saturation Oxygen saturation in Arterial blood by Pulse oximetry Heart rate Provider Name and Address Organization Details Last Updated DateTime 04/12/2024 167.64 cm 99 % 99 % 72 /min Radha Muniz [facility] 04/12/2024 10:37:20 Date Recorded Systolic blood pressure Diastolic blood pressure Provider Name and Address Organization Details Last Updated DateTime 04/12/2024 120 mm[Hg] 74 mm[Hg] Adriane Travis RN [address] [facility] [address], [address], [facility] 04/12/2024 10:49:10 Date Recorded Body height Oxygen saturation Oxygen saturation in Arterial blood by Pulse oximetry Heart rate Systolic blood pressure Diastolic blood pressure Provider Name and Address Organization Details Last Updated DateTime 4 167.64 cm 99 % 99 % 114 /min 124 mm[Hg] 86 mm[Hg] Mary Ann james [place] [facility] 4 13:42:00 Date Recorded Body height Body mass index (BMI) Body weight Oxygen saturation Oxygen saturation in Arterial blood by Pulse oximetry Heart rate Systolic blood pressure Diastolic blood pressure Provider Name and Address Organization Details Last Updated DateTime 4 167.64 cm 36.2 kg/m2 514667. 69 g 99 % 99 % 84 /min 122 mm[Hg] 84 mm[Hg] Mary Ann james [facility] 4 09:31:35 Social History Question Answer Notes LastModified by Organizat ion Details LastModified Time Tobacco Smoking Status Former Smoker Ankita Benítez NP [address] [facility],[address], [place], [address], [facility] 12/25/2023 10:25:26 What Is Your Level Of Alcohol Consumption? Occasional [email or web address] Information not available 12/25/2023 Are You Currently Employed? Yes [email or web address] Information not available 12/25/2023 Which Illicit Or Recreational Drugs Have You Used? 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 6-10yearssince lastcigarette [email or web address] Information not available 12/25/2023 How Many Children Do You Have? 0 Information not available 12/25/2023 What Is Your Relationship Status? Domestic Partner [email or web address] Information not available 12/25/2023 Do You Use Any Illicit Or Recreational Drugs? Yes [email or web address] Information not available 12/25/2023 Sex: Female Functional Status None recorded. Mental Status None recorded. Family History Relationship Description Onset Age of this Age Resolved Age Notes LastModified by Organization Details LastModified Time Mother History of total hip arthroplasty Not available 10:24:10 Mother History of total knee arthroplasty [email or web address] Not available 10:24:19 Mother Hypothyroidi sm [email or web address] Not available 2023 10:24:25 Father Heart valve replacement [email or web address] Not available 12/04 10:24:34 Medical History No medical history recorded. Gynecological HistoryNo gynecological history recorded. Obstetrics History GPAL:G 0 P 0 0 0 0 Past Encounters Encounter ID Performer Location Encounter Start Date Encounter Closed Date Diagnosis/Indication Diagnosis SNOMED-CT Code Diagnosis ICD10 Code Diagnosis Note [id number] Ankita Benítez NP Main Office [address] [place] [address] 12/25/2023 10:18:20 12/25/2023 10:45:40 Developmental dysplasia of right hip 7399422357 Q65.89 Has an in person visit next week for documentat ion for the specialize d MRI that Dr. Washington wants to determine best surgical plan. Follow up at that time.We did discuss adding tylenol to pain regimen and topical NSAID as well. Generalize d anxiety disorder 12095533 F41.1 Stable on PRN ativan. [id number] Ankita Benítez NP Main Office [address] [place] [address] 12/29/2023 09:43:58 12/29/2023 10:51:01 Developmental dysplasia of right hip 5616853061 Q65.89 Will order specialize d MRI through [facility] . [id number] Ankita Benítez NP [address] [place] [address] 03/04/2024 11:07:33 03/04/2024 11:27:57 Developmental dysplasia of right hip 1624564678 Q65.89 MRI and visit with Dr. Washington have been completed. Surgery is scheduled for July and we need to get another out of network referral done for Dr. Washington and the surgical center (see [facility] for NPI number). I will fill out any [facility] paperwork required beforehand . Patricia will get me Dr. Washington's note to help with the out of network referral request. [id number] Ankita Benítez NP [address] [place] [address] 04/07/2024 12:32:10 04/07/2024 13:54:08 Low back pain 533802786 M54.50 Full exam done at urgent care and I reviewed. Pain management as below. Stretching and activity discussed. Follow up PRN. [id number] Main Office [address] [place] [address] 04/12/2024 10:28:29 04/12/2024 11:21:48 Low back pain 455403756 M54.50 Lumbago with sciatica 20 8508849 M54.42 [id number] Ankita Benítez NP Main Office [address] [place] [address] 04/26/2024 13:35:09 04/26/2024 14:39:02 Therapeutic opioid induced constipation 4163185714 83973 K59.00 Add PRN lactulose. Follow up PRN. Lumbago with sciatica 20 3421914 M54.40 Increase oxy to q4h. Scheduled for surgery with Dr. Webster next week. EKG with sinus tachycardi a, suspect due to pain as HR has always been normal in the past. [id number] Ankita Benítez NP Main Office [address] [place] [address] 08/25/2024 09:21:49 08/25/2024 10:13:33 Developmental dysplasia of right hip 7128896365 Q65.89 Surgery planned for 09/01. Pre-surger y evaluation 582860487 Z01.818 RCRI risk of 3.9% of cardiac event or within 30 days. EKG WNL at office today.fax: [phone] Health Concerns Section Related Observation LastModified by Organization Detai ls LastModified Time None Recorded Concern Status LastModified by Organization Details LastModified Time None Recorded Advance Directives Directive None Recorded Payers Encounter Date Sequence Insurance Name Policy Number Policy Parish Covered Member ID Parish Member ID Guarantor Name 03/04/2024 1 [facility] [id number] Patricia Marie [id number] Patricia Marie 04/07/2024 1 [facility] [id number] Patricia Marie [id number] Patricia Marie 04/12/2024 1 [facility] [id number] Patricia Marie [id number] Patricia Marie 04/26/2024 1 [facility] [id number] Patricia Ontiveros Frank [id number] Patricia Frank 08/25/2024 1 [facility] [id number] Patricia Ontiveros Marie [id number] Patricia Marie Notes Date Note Type Note Provider Name and Address Organization Details Recorded Time 03/04/2024 text/html Video visit to discuss their hip surgery. They are scheduled for a hip replacement in July with Dr. Kali Washington at [facility] in [place], [place]. The provider number which is: [id number] (facility NPI number). Surgery is 07/14/24.This surgery is ideally performed by Dr. Washington because of his experience with hip dysplasia and the findings on the MRI. Patricia saw Dr. Washington this morning and I will be getting a copy of his note when signed.May need PFMLA for intermittent leave leading up to surgery and if so Patricia will message me with details and paperwork. Ankita Benítez NP [address] [address], [place], [address], [facility] 03/04/2024 11:27:22 04/07/2024 text/html Has been [...] incontinence or weakness. Ankita Benítez NP [address] [address], [place], [address], [facility] 04/07/2024 13:08:29 04/12/2024 text/html Patient presents today for continuing issues with lower back pain. They were seen in the office 04/07 and in the emergency room later that day. Michel Shay DO [address] [facility] [address], [place], [address], [facility] - [facility] 04/13/2024 08:23:27 04/26/2024 text/html Here to discuss constipation and pain management before her back surgery next week. Her oxycodone is not holding her for the 6 hours.Despite numerous bowel meds she is still constipation. Ankita Benítez NP [address] [facility], [place], [address], [place] [facility] 04/26/2024 15:14:02 08/25/2024 [...] prior to surgery. Ankita Benítez NP [address] [facility],[address], [place], [address], [place] [facility] 08/25/2024 10:15:18 OBGyn Episode No OBEpisode recorded.
--- OUTSIDE RECORDS SUMMARY | 2024-12-02 13:18 | XMS_ITS | Data Portability ---
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 -consider PT.RTC prn Abnormal c ervical Papanicolaou smear 560502316 R87.619 abnormal in past-neg colpo. Records reviewed. [id number] Demetria head, PT Physical Therapy, [address] [address] 12/30/2016 07:30:56 12/30/2016 10:59:33 Hip pain 96862684 M25.113 [id number] Demetria head, PT Physical Therapy, [facility] [address] [place] [address] 01/15/2017 07:33:02 01/15/2017 08:15:04 Hip pain 84613461 M25.325 [id number] Vicki Hines NP , [facility], [address] [place] [address] 06/29/2017 08:35:30 06/29/2017 09:14:12 Streptococcal sore throat 40775766 J02.0 Take entire 10d course of penicillin . [id number] Evelyn Gibson NP , [facility], [address] [place] [address] 02/12/2018 09:32:13 02/12/2018 10:47:55 Adult health examination 523580922 Z00.00 see Risk Assessment and Lifestyle Change Counseling section above Counseling 333651270 Z71 .9 Depression screening 171 442558 Z13.89 depression screening tool administer ed, entered into emr, scored and discussed, time greater than 7.5 minutes Venereal d isease screening 832249024 Z11.3 risk awareness reviewed Abnormal weight gain 161 734288 R63.5 Strain of flexor muscle of right hip [id number] 8991260 M25.313 [id number] Logan Washington MD Sports Medicine, [facility] [address] [place] [address] 03/25/2018 07:47:10 03/25/2018 08:22:13 Hip pain 66891974 M25.551 Patricia is a 28-year-ol d female with right hip pain that I believe is most consistent with labral pathology. She may also have some tendinitis of her hip flexors contributi ng to her discomfort . Reviewed all this with her today in the office as well as discussing treatment options both short and long-term. We discussed physical therapy in the use of NSAIDs as well as the possibilit y of surgical interventi on. I have asked that she obtain an x-ray of her right hip after the office appointmen t to evaluate for any bony abnormalit ies. She was also given a referral to physical therapy which she will start soon. She will plan a follow-up with me in 8 weeks for reevaluati on. 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 right hip pain that appears mechanical in nature, most consistent with labral pathology. Contributi ng to this is poor posture/fozia dy habitus, weakness of hip/knee stabilizat ion muscles and poor habitus leading to poor load distributi on causing pain. Patient requires skilled physical therapy in order to safely and effectivel y progress their rehabilita tion to gain maximal functional outcome with as much symptom resolution as possible. Patient Goals: Resolve pain in order to return to normal function including yoga, exercise Clinical Goals: Full and pain-free right hip AROM; increase strength of L hip/knee stabilizat ion muscles to at least 5-/5; education on posture/er gonomics Treatment Plan: Patient to return 1-2 times per week for 4-6 weeks. Treatment to Include: therapeuti c exercises/ activities , HEP prescripti on, modalities PRN, edema massage, manual therapy, ROM, patient education. [id number] Adriane martin PA-C , [facility], [address] [place] [address] 04/19/2018 09:05:37 04/19/2018 09:59:54 Insertion of intrauterine contraceptive device 58668677 Z30.430 IUD placed without difficulty . Counseled on expectatio ns for bleeding pattern changes.Re d flags reviewed: Pain, unusual cramping, etc. [id number] Petey Oliver, PT, DPT, [facility] Physical Therapy, [facility] [address] [place] [address] 04/21/2018 07:33:21 04/21/2018 09:31:08 Hip pain 84486252 M25.551 Pt initially noted knee soreness with long axis distractio n given genu recurvatum , but better with short axis distractio n noting the relief in the R hip. Pt surprised to find bridging combo difficult in isolating movements but able to complete correctly and pain-free. Continue PT per POC [id number] Aiena Miranda Oliver, PT, DPT, CSCS Physical Therapy, [address] [address] 04/26/2018 17:30:42 04/27/2018 13:01:14 Hip pain 08172079 M25.551 Upon standing up from manual techniques pt surprised to find it feels much better and satiated the sensation of wanting to stretch. Pt instructed she may slowly reintroduc e external rotation movements into her yoga practice.C ontinue PT per POC [id number] Logan Washington MD Sports Medicine, [address] [address] 05/20/2018 07:48:54 05/20/2018 08:30:45 Hip pain 56462526 M25.551 Patricia is a 28-year-ol d female with right hip pain that I believe is secondary to labral pathology. Her previous x-rays of the hip reveals some mild acetabular dysplasia as well as a somewhat asymmetric femoral head which I feel may predispose her to labral injury. I reviewed this possible injury with her today in the office as well as discussing further treatment options. Unfortunat abilio she has failed conservati ve management with over 8 weeks of physical therapy and have advised she obtain an MRI arthrogram of her right hip to evaluate for labral pathology amenable to surgical interventi on. She will plan to follow up with me after her MRI for reevaluati on [id number] Logan Washington MD Sports Medicine, [address] [address] 07/01/2018 08:12:51 07/01/2018 08:47:25 Hip pain 31791323 M25.551 Patricia is a 28-year-ol d female with right hip pain which I believe is secondary to underlying hip dysplasia. Her recent MRI arthrogram of the hip demonstrat es no evidence of labral pathology underlying degenerati ve changes. I reviewed this diagnosis with her extensivel y as well as discussing possible treatment options. Since she does not have any labral pathology I do not feel she would benefit from arthroscop ic interventi on. She does not have any underlying degenerati ve changes as of yet so may have some benefit from joint preservati on type surgery to prevent onset of osteoarthr itis. I have advised at this time that she avoid activities that cause discomfort but otherwise can participat e in activities as tolerated. I have given her a referral to Dr. Minh Lyman at [facility] for consultati on regarding joint preservati on surgery I discussed operative options. I am happy to see her back as needed for further care. [id number] TONIO Tapia , [facility], OFFICE [address] [facility] [place] [address] 10/07/2018 10:33:22 10/07/2018 17:40:43 Venereal disease screening 021674860 Z11.3 [id number] Evelyn Gibson NP , [facility], [address] [place] [address] 02/24/2019 15:53:54 02/24/2019 16:55:54 Adult health examination 836044183 Z00.00 see Risk Assessment and Lifestyle Change Counseling section above Counseling 302964045 Z71 .9 Depression screening 171 855112 Z13.89 depression screening tool administer ed, entered into emr, scored and discussed, time greater than 7.5 minutes Venereal d isease screening 529902379 Z11.3 risk awareness reviewed Pain in ri ght hip joint 7818517285 41421 M25.551 Wear shoes with arch support. Ortho referral RTC prn Screening for malignant neoplasm of cervix 896408168 Z12.4 [id number] Janina Reinoso MD , [facility], [address] [place] [address] 03/05/2019 10:48:40 03/05/2019 11:46:35 Acute upper respiratory infection 75010573 J06.9 Educated patient that URI is a viral illness of the upper airways. It is not bacterial and does not benefit from antibiotic s. Average duration of URI is 7-10 days but in a recent trial, treatment at 7-10 days of illness with antibiotic s, intranasal steroids, or placebo did not alter natural history at 3 weeks. Recommende d symptomati c treatments including NSAIDS, semi-uprig ht sleep position, antihistam ayala at HS, limited course of nasal sympathomi metics and/or cough syrups, and nasal saline rinses with soft squeeze bottle or Neti pot. Return for fevers > 101 for 3 days, worsening sinus pain, or failure to resolve in 2-4 weeks. Influenza 1830797 J11.1 declined tamiflu; counseled re infection/ contagion precaution s [id number] Efrain Eckert, OD Eye Care, [address] [place] [address] 08/23/2019 07:36:45 08/23/2019 08:10:24 Regular astigmatism 63567170 H52.789 [id number] Radha Alcantar MD Rheumatol [facility], [address] [place] [address] 10/05/2019 08:01:37 10/06/2019 06:10:34 Pain in right hip joint 1871008291 39049 M25.551 Due to right hip dysplasia. I discussed with the patient the need to see an employment specialist to discuss the best treatment option as it cannot be left untreated. Patient was asked to contact the Child and Young Adult Hip Preservati on Program at [facility] at [phone] and contact me or PCP back if referral is needed.Con tinue to do therapy. AVoid strenuous yoga.Come back as needed. [id number] Mike Painting, PT Physical Therapy, [address] [address] 10/19/2019 15:06:14 10/20/2019 08:17:24 Hip pain 52362426 M25.559 Congenital dysplasia of right hip 7878893922 7066746 Q65.89 [id number] CHAYITO Avila, [facility], [address] [place] [address] 02/01/2020 14:44:54 02/03/2020 14:17:14 Low back pain 110813384 M54.5 advised to do her PT exercises, change sitting position often, try different chairs, try pillow between legs at hs. Call if sx persist or increase. Declines PT referral at this time. [id number] Evelyn Gibson NP , [facility], [address] [place] [address] 06/01/2020 08:56:10 06/05/2020 13:42:55 Adult health examination 825341258 Z00.00 see Risk Assessment and Lifestyle Change Counseling section above Counseling 758936142 Z71 .9 Depression screening 171 110553 Z13.89 depression screening tool administer ed, entered into emr, scored and discussed, time greater than 7.5 minutes Posttrauma tic stress disorder 30809134 F43.10 doing well, has therapist Backache 593543109 M54.9 [id number] Rosanne Corona LPN FP, [facility], [address] [facility] [place] [address] 09/22/2020 07:36:46 09/22/2020 09:12:43 Active or passive immunization 824034895 Z23 [id number] Evelyn Gibson NP FP, [facility], [address] [place] [address] 09/25/2020 15:29:13 10/03/2020 09:11:00 Chronic pelvic pain of female 662463584 R10.2 [id number] CHAYITO Avila, [facility], [address] [place] [address] 02/06/2021 15:36:22 02/07/2021 11:24:27 Congenital dysplasia of right hip 0451132618 0443951 Q65.89 paperwork completed together = faxed to [facility] along with ortho notes. [id number] Evelyn Gibson NP , [facility], [address] [place] [address] 06/14/2021 11:22:57 06/14/2021 12:12:53 Adult health examination 747283837 Z00.00 see Risk Assessment and Lifestyle Change Counseling section above Counseling 581087955 Z71 .9 Depression screening 171 842868 Z13.31 depression screening tool administer ed, entered into emr, scored and discussed, time greater than 7.5 minutes Screening for alcohol abuse 162353229 Z13.39 Congenital dysplasia of right hip 7618871047 0053249 Q65.89 ppw to be completed and faxed. Posttrauma tic stress disorder 29013170 F43.10 doing well, has therapist Increased frequency of urination 672832593 R35.0 Neck pain 39028730 M54.2 hopefully bresast reduction will help alleviate some of this Hypertrophy of breast 37 1928188 N62 Venereal d isease screening 731333281 Z11.3 risk awareness reviewed Fatigue 59980523 R53.83 [id number] Mae Galvez MD FP, [facility], [address] [place] [address] 11/12/2021 11:26:56 11/13/2021 12:08:49 Active or passive immunization 224402840 Z23 Macromastia 735890635 N6 2 Cleared for breast reduction surgery [id number] Hernesto Henning PA-C , [facility], [address] [place] [address] 03/12/2022 08:54:41 03/12/2022 15:10:16 Cardiovascular examination and evaluation 79283175 Z01.810 Name of Surgeon: Dr. Marcie Brooks RY DATE: 03/18/22PCP : Janet Gibson NP Pre-operat janae assessment and plan:Summa ry: Patient has low maksim-opera tive risk for cardiovasc ular event for planned low-risk procedure( 1) Cardiovasc ular Evaluation :Cardiovas cular risk for perioperat janae complicati ons: low (no hx ischemic events, CHF exacerbati on, A Fib)Not on beta-block erNo known arrhythmia No additional CV pre-op testing required (2) Pulmonary Evaluation :Risk for perioperat janae pulmonary complicati ons: lowNo overt sx of ANAHI (3) Medication Recommenda tions:No medication s need to be stopped or held prior to surgeryNot on anticoagul ation or anti-plate let txNot on steroids: no role for stress dose (4) No Diabetes Mellitus - no specific recommenda tions (5) DVT prophylaxi s as per surgical protocol (6) No age-based increased risk for Delirium(p atient <70) (7) No osteoporos is assessment indicated (8) No frailty assessment indicated Patient and I discussed this risk assessment and management , and addressed her questions. Will send this note to referring surgeon with thanks for allowing us to participat e in this patient's care. Macromastia 123985744 N6 2 Surgery planned as above. [id number] CHAYITO Avila, [facility], [address] [place] [address] 06/12/2022 09:13:06 06/24/2022 11:58:12 Adult health examination 697346575 Z00.00 see Risk Assessment and Lifestyle Change Counseling section above Counseling 002728006 Z71 .9 Depression screening 171 293723 Z13.31 depression screening tool administer ed, entered into emr, scored and discussed, time less than 7.5 minutes Screening for alcohol abuse 701382838 Z13.39 Congenital dysplasia of right hip 5100871669 7300146 Q65.89 stable at present Posttrauma tic stress disorder 81793518 F43.10 doing well, has indiv and couples therapist. Will Rx lorazepam for prn use only for panic/high anxiety moments. Call if needing more than 2-3/week - may need to consider daily med. Screening for malignant neoplasm of cervix 865738481 Z12.4 Vaginitis 71912655 N76.0 [id number] Mike Painting, PT Physical Therapy, [facility] [address] [place] [address] 10/14/2022 15:06:32 10/15/2022 11:19:34 Plantar fasciitis of left foot 5034320836 4870135 M72.2 Pain of left heel 603019 2727 538633 M79.311 [id number] Jennifer Love NP FP, [facility], [address] [place] [address] 10/28/2022 15:40:03 10/28/2022 16:23:44 COVID-19 302341245 U07.1 DIscussed dx. Healthy 32 y.o. who was recently boosted. No indication for paxlovid. Enc. sx mgt including fluids, rest, steam inhalation prn, otc analgesics for pain/fever . Needs to quarantine for a full 5 days starting today, then if no fever x 24 hours and feeling better can venture out but continue to mask for 5-7 more days. F/u prn increased cp, SOB, high fevers or other concerns. [id number] Enrique Lowe DPM Podiatry, [facility] [address] [place] [address] 11/19/2022 10:33:14 11/19/2022 11:42:29 Plantar fasciitis 936348215 M72.2 [id number] CHAYITO Avila, [facility], [address] [place] [address] 10/06/2023 08:49:15 10/06/2023 17:40:23 Congenital hip dysplasia 83184241 Q65.[address] Washington office needs to order this specialize d test.Henrique lala message to pt - waiting to hear back. also in need of new PCP = names given within [facility] [id number] Adriane Estes-Shelby martin PA-C , [facility], [address] [place] [address] 10/23/2023 08:59:19 10/23/2023 13:41:37 Long-term current use of drug therapy 296585130 Z79.899 Developmen cathy dysplasia of right hip 7590788555 Q65.89 xraythen decide which imaging studymr - labral, cartilage Pain in ri ght hip joint 2892726296 46273 M25.551 Wear shoes with arch support. Ortho referral RTC prn Fatigue 72274911 R53.83 Health Concerns Section Related Observation LastModified by Organization Detai ls LastModified Time None Recorded Concern Status LastModified by Organization Details LastModified Time None Recorded Advance Directives Directive None Recorded Payers Encounter Date Sequence Insurance Name Policy Number Policy Parish Covered Member ID Parish Member ID Guarantor Name 10/14/2022 1 [facility] [id number] Patricia Marie [id number] Patricia Marie 10/28/2022 1 [facility] [id number] Patricia Marie [id number] Patricia Marie 11/19/2022 1 [facility] [id number] Patricia Marie [id number] Patricia Marie 10/06/2023 1 [facility] [id number] Patricia Marie [id number] Patricia Marie 10/23/2023 1 [facility] [id number] Patricia Marie [id number] Patricia Marie Notes Date Note Type Note Provider Name and Address Organization Details Recorded Time 10/14/2022 text/html R Shoulder pain. Has hip pain in past 2 hip dysplasiaHad chest surgery in March, weakness in chest and upper shoulders area. Weak and stiff, B sh. Getting some bodywork done and scar tissue work. L heel pain too. Waiting months to get in to Podiatry. Heels most troubling than shoulders today. R hip dysplasia. Has been doing stretching and ball massage. Supportive insoles in boots. L lateral heal pain. AM pain and also evening or next day pain after walking. Hiking boots. Heel pain insidious onset, maybe onset at time of L SIJ pain. Pt also states she has hypermobility. At times calf stretching helps, and other times not stretching helps. Mike Painting, PT [address] [place], [address], [facility] 10/14/2022 22:21:11 10/14/2022 text/html Intake ReviewedReported bypatient.Patient intake form reviewedwith patient including functional limitations. Document is scanned into chartPT Initial Eval*Reported bypatient.Symptom duration:frequently Symptom change:variable Symptom quality:mostly L lateral heel Aggravating Factors:worse in the morning; after walking for exercise Alleviating Factors:sometimes stretching Sleep Status:difficulty sleeping due to pain; heel pain sleeping/waking up. 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 Gym buke/elliptical Associated Symptoms:no nausea; no vomiting; no fever; no chills; no excessive fatigue; no confusion; no forgetfulness; no dizziness; no lightheadedness; no change in weight; no numbness; no tingling; no changes in urinary habits; no changes in bowel habits; no loss of pleasure or interest in activities; no feeling down or depressed Mike Painting, PT [address] [place], [address], [facility] 10/14/2022 22:21:11 10/28/2022 text/html Time for intake: {{1 2* 3 4 5 6 7 8 9 10 11 12 13 14 15 16 17 18 19 20 21 22 23 24 25}} minutes.Sx started yesterday - tested + today. Has runny nose, body aches, ST, no fever, mild cough. Eating/drinking normally. Pt has gotten recent booster with flu vaccine late fall. Jennifer Love NP [address] [place], [address], [facility] 10/28/2022 15:55:12 11/19/2022 text/html Patient presents to the office complaining of pain beneath the bottom of her left heel. Patient states she has been experiencing pain generally with increased weightbearing, but also with weightbearing after rest for approximately the past 4 months. Patient notices some degree of improvement with more supportive shoes. Patient has no complaints of swelling or discoloration. Enrique Lowe, ABRAH[place] [address] [place], [address], [facility] 11/19/2022 11:34:30 10/06/2023 text/html video - PT needs MRI referral for Dr Kali Washington Hip Displasiaright hip - has met with Dr Washington in past, (2020)needed pre-auth, Covid happened.needs MRI orderedcall Dr Washington office - [phone] - Margot schedules appt at [facility] for the special MRIright hip pain = worse when walking or standing long time >15minimproved with restHNE - will need PA new PCP - Dr Coates, or Maria Fernanda Diop PA at [facility] Evelyn Gibson, CHAYITO [address] [place], [address], [facility] 10/07/2023 09:03:41 10/23/2023 text/html PA submitted - [facility] - sent to Dr Washington - abdifatah notes say needs MRI - he has report - we do notcongenital, not going to imporve with PTwanted MRI because xrays did not provide info [phone] x [phone] for approval peer to peerneeds PCP with LGBTQ exp in [facility] or [facility] right hip - extreme pain, worst with walking and standing >10min - works at [employer] for support nowmostly in groin and lat aspect, can radiate into legrest helps, ibuprofen 3-tid mother had bilat TKR and THR 15 bus days 11/03/23 for peer to peer deadlinei can do peer to peerthurs 2;45 call ############# will come Dr Anika Sebastián Lance PA-C [address] [place] [address], [phone], [facility] 11/27/2023 08:37:41 OBGyn Episode No OBEpisode recorded.
--- OUTSIDE RECORDS SUMMARY | 2024-12-02 13:18 | XMS_ITS | Clinical Summary ---
Author Organization [employer] Address [address] [facility] [address] [place] [address] Care Team Providers Care Technology Integration Specialist Name Role Phone Unavailable Primary Care Provider Unavailabl e Social History Tobacco Use Types Packs/Day Years Used Date Smoking Tobacco: Never Assessed Comments Unknown Sex and Gender Information Value Date Recorded Sex Assigned at Not on file Legal Sex Female 10:11 AM EDT Gender Identity Not on file Sexual Orientation Not on file Plan of Treatment Health Maintenance Due Date Last Done Comments Depression Screening 1988 HIV Screening 1988 SDOH Screening 1988 Alcohol/Substance Use Screening 2000 Tobacco Screening 2000 Family Planning (PISQ) 02/13/2003 Hepatitis C Screening 02/13/2006 DTaP/Tdap/Td Vaccines (1 - Tdap) 02/13/2007 Hepatitis B Vaccines (1 of 3 - 19+ 3-dose series) 02/13/2007 Pap Smear 02/13/2009 Cervical Cancer Screening 02/13/2018 HPV/Cotest 02/13/2018 COVID-19 Vaccine ( - 2023-2 5 season) 2024 Influenza Vaccine (#1) 2024 Zoster Vaccines (1 of 2) 02/13/2038 RSV Patients and Pa tients Aged 60 years or older (1 - 1-dose 75+ series) 02/13/2063 HIB Vaccines Aged Out No longer eligi ble based on patient's age to complete this topic HPV Vaccines Aged Out No longer eligi ble based on patient's age to complete this topic Hepatitis A Vaccines Aged Out No long er eligible based on patient's age to complete this topic IPV Vaccines Aged Out No longer eligi ble based on patient's age to complete this topic Meningococcal Vaccine Aged Out No duran sonia eligible based on patient's age to complete this topic Pneumococcal Vaccine: Pediat rics (0 to 5 Years) and At-Risk Patients (6 to 49) Years) Aged Out No longer eligible b ased on patient's age to complete this topic RSV under 20 months Aged Out No longe r eligible based on patient's age to complete this topic Rotavirus Vaccines Aged Out No longer eligible based on patient's age to complete this topic
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
== END 2024-12-02 14:20 | disposition home or self-care (01) ==
LOC: HO.HNS 13:03
PROVIDERS: PCP Nurse Practitioner Gerontology; Visit Provider Physician Assistant
DX: Z98.890 Other specified postprocedural states (principal)
CPT/HCPCS: 99213

== ENCOUNTER → 2024-12-02 13:03 | Outpatient (BNVA) | payer MEDICAID, SELFPAY | PROVIDERS: PCP Nurse Practitioner Gerontology; Visit Provider Physician Assistant | DX: M54.50 Low back pain, unspecified (principal); Z98.890 Other specified postprocedural states | CPT/HCPCS: 99212 ==